=== PATIENT | male | born 1955 | race Caucasian/White ===

== ENCOUNTER 2022-09-21 09:10 | Outpatient (CLI) | payer MEDICARE, BC, SELFPAY ==
[2022-09-21 14:18] LABS: SARS PCR* Negative SARS-CoV-2 (Negative)
== END 2022-09-21 09:11 | disposition home or self-care (01) ==
PROVIDERS: Visit Provider Orthopaedic Surgery
DX: Z20.822 Contact with and (suspected) exposure to COVID-19 (principal); Z01.818 Encounter for other preprocedural examination
CPT/HCPCS: 87635

== ENCOUNTER 2022-09-22 07:59 | Day surgery (SDC) | payer MEDICARE, BC, SELFPAY ==
[2022-09-22] VITALS (23 sets, daily range): BP systolic 84–159; BP diastolic 40–106; PULSE 67–95; RESP 16–18; TEMP 36.1–36.6; O2SAT 94–100; BMI 37.8
[2022-09-22] MEDS: OXYCODONE (CR) 10 MG TAB.ER.12H PO (08:00)
[2022-09-22] MEDS: CELECOXIB 200 MG CAPSULE PO (08:00)
[2022-09-22] MEDS: LACTATED RINGERS 1000 ML 1,000 ML 100 ML IV ×2 (08:00→11:17)
[2022-09-22] MEDS: SODIUM CHLORIDE 0.9 % (FLUSH) 10 ML SYRINGE IVF (08:31)
[2022-09-22] MEDS: ACETAMINOPHEN 500 MG TABLET 1000 MG PO ×3 (08:31→20:11)
[2022-09-22] MEDS: MIDAZOLAM HCL 1 MG/ML inj IVP (09:25)
[2022-09-22] MEDS: fentaNYL 100 MCG/2 ML inj IVP (09:25)
--- NOTE | 2022-09-22 09:30 | P.NB_ITS ---
Nerve Block Nerve Block Time Seen by Provider: 09:29 Date Seen: 09/22/22 Type of block requested by surgeon for post-operative analgesia: adductor canal Side: right Time out performed: Yes Verification of patient name: Yes Verification of date of : Yes Site marking: site marked Name of person performing procedure: Joshua Continuous monitoring Was continuous monitoring of O2 sat, B/P, director of cardiac rehabilitation, recorded every 15 minutes?: Yes Procedure Checklist: sterile prep, needles and gloves Ultrasound guided. Images saved: Yes Medications given in 5ml increments after negative aspiration: Ropivicaine %: 0.5 mL: 20 Needle gauge: 20 Decadron (mg): 10 Precedex (mcg): 25 Patient tolerated procedure well: Yes Additional comments: Needle noted adjacent to nerve Block Charges Block Charge (with Pro Fee): Femoral Nerve Use of Ultrasound Machine for Block: Yes- US Guidance/pain block
--- NOTE | 2022-09-22 09:30 | W.ANESCHARGE ---
Anesthesia Charges Start Date/Time Anesthesia Start Date: 09/22/22 Anesthesia Start Time: 09:48 Stop Date/Time Anesthesia Stop Date: 09/22/22 Anesthesia Stop Time: 12:03
--- NOTE | 2022-09-22 09:30 | SUR.PREOP ---
TIME?OUT:?09:23am PT/RN/MDA?VERIFICATION?OF?SURGICAL?SITE RKnee,?PROCEDURE Nerve Block,?AND?CONSENT OBTAINED?PRIOR?TO?INVASIVE?PROCEDURE.
--- NOTE | 2022-09-22 09:31 | W.PM.NB ---
Nerve Block Nerve Block Time Seen by Provider: 09:29 Date Seen: 09/22/22 Type of block requested by surgeon for post-operative analgesia: geniculars Side: right Time out performed: Yes Verification of patient name: Yes Verification of date of : Yes Site marking: site marked Name of person performing procedure: Joshua Continuous monitoring Was continuous monitoring of O2 sat, B/P, scrap piler, recorded every 15 minutes?: Yes Procedure Checklist: sterile prep, needles and gloves Medications given in 5ml increments after negative aspiration: Ropivicaine %: 0.5 mL: 9 Needle gauge: 25 Patient tolerated procedure well: Yes Block Charges Block Charge (with Pro Fee): Genicular Nerve Block Use of Ultrasound Machine for Block: No
[2022-09-22] MEDS: CEFAZOLIN 2 GM INJ IVP (09:58)
[2022-09-22] MEDS: TRANEXAMIC ACID 100 MG/ML INJ 1000 MG IV (10:00)
--- NOTE | 2022-09-22 11:12 | CRLHL7_ITS ---
For Patients: As a result of the Cures Act, medical imaging exams and procedure reports are released immediately into your electronic medical record. You may view this report before your referring provider. If you have questions, please contact your health care provider. Indication: POST OP RIGHT TKA Technique: Two views right knee Findings/Impression: Hardware from a right total knee arthroplasty is in satisfactory position. Bone alignment is normal. No sign of acute fracture. Postop changes are within normal limits. Chronic changes to the proximal fibula, unchanged from 09/17/2021. Dictated by Varinder Irwin MD @ 09/22/2022 12:44:41 PM (Electronically Signed)
--- NOTE | 2022-09-22 11:14 | P.ORPRC_ITS ---
Procedure Note Date of procedure: 09/22/22 Procedure: PREOPERATIVE DIAGNOSIS: Right knee osteoarthritis POSTOPERATIVE DIAGNOSIS: Right knee osteoarthritis NAME OF OPERATION: Right total knee arthroplasty SURGEON: Emerson Crenshaw MD HOME APPLIANCE WASHING MACHINE MECHANIC: GENEVA Centeno ANESTHESIA: Spinal ESTIMATED BLOOD LOSS: 0 mL COMPLICATIONS: None SPECIMENS: None DRAINS: None PREOPERATIVE ANTIBIOTICS: Ancef 3 grams IMPLANTS: 1. J&J Attune # 7 posterior stabilized femur 2. # 7 fixed-bearing tibia 3. # 7 posterior stabilized, 5 mm fixed-bearing polyethylene 4. 41 patella INDICATIONS: The patient is a 67-year-old with a longstanding history of severe, unrelenting right knee pain secondary to end-stage (grade IV) right knee osteoarthritis. Despite appropriate nonoperative management, including activity modification, anti-inflammatories, [id number] pain medication, bracing, physical therapy, and injections they continue to have pain and disability. Operative intervention was offered. The risks, benefits and expected outcomes were discussed in detail. These included but were not limited to: Infection, bleeding, injury to blood vessel or nerve, venous thromboembolism. All questions were answered to their satisfaction. Use of an food and beverage assistant was necessary throughout the case for patient positioning and safety, soft tissue retraction, and closure. PROCEDURE: Spinal anesthesia was administered. The patient was placed supine on the operating table. The food and beverage assistant made sure the patient was positioned appropriately. The lower extremity was prepped and draped in the usual sterile fashion. The limb was exsanguinated with the Stefan bandage. The pneumatic tourniquet was inflated to 300 mmHg. A standard anterior incision was made with the knee in flexion. Subcutaneous dissection was sharply taken through fascial layer #1. Full-thickness medial and lateral flaps were elevated. The food and beverage assistant retracted the soft tissues and protected them throughout the case. A standard medial parapatellar approach was made. The patella was everted. The infrapatellar fat pad was preserved. The menisci and cruciate ligaments were sharply d?brided. Marginal osteophytes were d?brided with the rongeur. The drill was used to penetrate the femoral canal. The canal was aspirated and irrigated with pulse lavage. The intramedullary femoral guide was placed for a 5-degree valgus cut, removing 10 mm off the distal femur. The saw was used to make the cut. Whitesides line and the trans epicondylar axis were marked. The femoral sizing guide was pinned onto the distal femur. Three degrees of external rotation nicely parallels the transepicondylar axis. Pins were placed for posterior referencing. The four-in-one cutting guide was pinned onto the distal femur. The anterior, posterior, and chamfer cuts were made. The food and beverage assistant protected the collateral ligaments. The box cutting guide was pinned. The box cuts were made. The boxed trial was placed and was an excellent fit. Drill holes for the lugs were made. Attention was then turned to the proximal tibia. The extramedullary tibial guide was placed for a neutral varus/valgus cut with 5 degrees of posterior slope, removing 2 mm based off the medial tibial surface. The food and beverage assistant protected the collateral ligaments and the neurovascular bundle. The saw was used to make the cut. Trial components were placed. The knee was nicely balanced in both flexion and extension. The trial components were removed. The tray was placed in appropriate rotation, parallel to our tibial cutting pins. It was pinned by the food and beverage assistant and the drill and the punch were used. The tray was removed. The punch was used again. We placed a bone plug in the femoral canal. Attention was then turned to the patella. [place] patellar thickness was 25 mm. The lobster claw resection guide was used with the 9.5 mm hardik. The saw was u sed to make the cut. Drill holes were made by the food and beverage assistant. The trial was placed and was an excellent fit. Cancellous surfaces were irrigated with pulse lavage and thoroughly dried by the food and beverage assistant. We cemented the tibial component, then the femoral component. We impacted the 5 mm polyethylene onto the tibial tray. The knee was brought into full extension. We then cemented the patellar component. Excessive cement was removed. The cement was allowed to harden. The knee was taken through a range of motion and was found to be nicely balanced in both flexion and extension. The patella tracks centrally. The food and beverage assistant did a three minute dilute Betadine solution soak. The food and beverage assistant irrigated the wound with 3 liters of normal saline via pulse lavage. The food and beverage assistant reapproximated the extensor mechanism with #1 Vicryl in an interrupted [id number] fashion. The food and beverage assistant then ran the extensor mechanism with a #1 PDO Stratafix. The food and beverage assistant closed the subcutaneous tissues with a 3-0 Stratafix and the skin with a running 3-0 Stratafix in a subcuticular fashion. Glue was used to seal the skin. The food and beverage assistant placed a dry dressing, JENAE stocking, and Polar Care. Sponge and needle counts were correct x2. The patient tolerated the procedure well. There were no apparent complications. They were carefully transferred to the hospital bed and taken to the postanesthesia care unit in satisfactory condition. PLAN: The patient will be mobilized with physical therapy. Aspirin will be used for DVT prophylaxis. They will be discharged to home once medically appropriate.
--- NOTE | 2022-09-22 12:06 | W.ANESCHARGE ---
Anesthesia Charges Start Date/Time Anesthesia Start Date: 09/22/22 Anesthesia Start Time: 09:48 Stop Date/Time Anesthesia Stop Date: 09/22/22 Anesthesia Stop Time: 01:20
--- NOTE | 2022-09-22 12:20 | SUR.PHASEI ---
xray here for ap/lat right knee
--- NOTE | 2022-09-22 12:29 | SUR.PHASEI ---
Joshua Zaidi HOSPITAL PHARMACY DIRECTOR into see pt ordered to give 500cc bolus of iv fluid bps 85/53 and continue to monitor
--- NOTE | 2022-09-22 12:38 | SUR.PHASEI ---
PT alert and orientated denies any pain or problems bp stating to come up last
--- NOTE | 2022-09-22 12:51 | W.ANESCHARGE ---
Anesthesia Charges Start Date/Time Anesthesia Start Date: 09/22/22 Anesthesia Start Time: 09:48 Stop Date/Time Anesthesia Stop Date: 09/22/22 Anesthesia Stop Time: 12:03
--- NOTE | 2022-09-22 13:08 | SUR.PREOP ---
I have reviewed and concur with all assessments, medication administration, and documentation completed by Lexi Main, student nurse.?
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
--- NOTE | 2022-09-22 15:24 | PC.NURSE ---
Pt arrived via hospital bed to room 259 @ 1253 pm from PACU s/p RTKA with Dr. Crenshaw. Please see initial assessment from PACU and frequent post op VS per protocol. Knee locked, bed alarm engaged. Bilateral knee robert hose, bilateral plexipulses, cryocuff to right knee. Mepilex CDI. Pt has rated his pain 0 out of 10, weak movement lower extremities. Scheduled tylenol provided. Maintenance IVF LR @ 75cc/hr. Pt has not yet voided since arrival on floor. Plan d/c tomorrow to his own home with Naty. Report to oncoming shift GRIFFIN Lui.
[2022-09-22] MEDS: OXYCODONE 5 MG TABLET PO ×2 (15:52→20:12)
[2022-09-22] MEDS: CEFAZOLIN 3 GM in 0.9 % SODIUM CHLORIDE 100 ml 100 ML IVPB (17:23)
[2022-09-22] MEDS: SENNOSIDES 1 TAB TABLET 2 TAB PO (20:11)
[2022-09-22] MEDS: ASPIRIN 81 MG TABLET EC PO (20:12)
[2022-09-22] MEDS: SIMVASTATIN 40 MG TABLET PO (20:12)
--- NOTE | 2022-09-22 23:25 | PC.NURSE ---
Nursing Care Hours: [id number] Pt this shift calm and cooperative with cares. Up in chair for dinner with PT, ambulate x1 assist with walker, then SB assist towards later evening. Voiding, eating, and drinking WNL. Bandage CDI, pedal pulses equal and slightly faint. Cryo-cuff on. Pain max 6/10 and treated per eMAR, 3/10 at HS.
[2022-09-23] MEDS: CEFAZOLIN 3 GM in 0.9 % SODIUM CHLORIDE 100 ml 100 ML IVPB ×2 (00:31→08:07)
[2022-09-23] MEDS: ACETAMINOPHEN 500 MG TABLET 1000 MG PO ×2 (01:41→08:45)
[2022-09-23 02:24] VITALS: BP 136/82; PULSE 88; RESP 14; TEMP 36.7; O2SAT 94
--- NOTE | 2022-09-23 06:26 | PC.NURSE ---
Pt is alert and oriented x3. Afebrile. Pt reports 2/10 pain in hip, pain managed with scheduled?Tylenol. Pt right hip dressing is CDI, area is warm and pink, and pt has strong pedal pulses with <3 cap refill in toes, pt is able to move and has sensation in his hip and leg.?Pt denies SOB, Chest pain, and N/V. Pt is up with SBA with walker and gait belt?and is tolerating a regular diet. Pt slept intermittently throughout night.?
[2022-09-23 06:49] LABS: Basophils Percent Auto 0.1 % (0.0-3.0); Hematocrit 36.7 % (37.0-53.0); Hemoglobin* 12.2 gm/dL (13.5-17.5); Immature Granulocytes Pct Auto 0.1 %; Lymphocytes Percent Auto 7.9 % (20-44); Mean Corpuscular HGB Conc 33 gm/dL (32-36); Mean Corpuscular Hemoglobin 31 pg (26-34); Mean Corpuscular Volume 92 fL (80-100); Monocytes Percent Auto 6.2 % (0.0-11.0); Neutrophils Percent Auto 85.7 % (42.0-72.0); Platelet Count* 277 K/uL (140-440); RDW Coefficient of Variation % 13.1 % (11.5-15.5); White Blood Count* 12.77 K/uL (4.50-11.00)
[2022-09-23 07:14] LABS: Potassium* 4.9 mmol/L (3.6-5.1); Sodium* 138 mmol/L (135-149)
[2022-09-23 07:17] LABS: Blood Urea Nitrogen* 18 mg/dL (7-30); Creatinine* 0.8 mg/dL (0.5-1.5); Est. Creatinine Clearance* 76.35; Estimated Glomerular Filt Rate 97 ml/min
[2022-09-23 07:18] LABS: Slide Review Reflex No
[2022-09-23 07:26] LABS: INR 1.01 (0.91-1.10); Prothrombin Time 13.9 Seconds
[2022-09-23 07:40] VITALS: BP 140/87; PULSE 92; RESP 18; TEMP 36.7; O2SAT 99
[2022-09-23] MEDS: ASPIRIN 81 MG TABLET EC PO (08:44)
[2022-09-23] MEDS: OXYCODONE 5 MG TABLET PO (08:44)
[2022-09-23] MEDS: allopurinoL 300 MG TABLET PO (08:44)
[2022-09-23] MEDS: SENNOSIDES 1 TAB TABLET 2 TAB PO (08:44)
--- NOTE | 2022-09-23 10:22 | PM.ORPN ---
Subjective Subjective Time Seen by Provider: 07:30 Date Seen: 09/23/22 Principal diagnosis: Status post right knee replacement Interval history: Florian is doing well today. He got minimal sleep last night. He will be discharging to home today. He is mobilizing well. Ortho Exam Narrative Exam Narrative: Alert and oriented x3. Patient is in no acute distress. Converses without labored breathing. Hearing is grossly intact. Ambulates with a walker. Examination of right knee shows the dressing is intact. Mild effusion. Mild soft tissue edema about the right knee. CMS intact right lower extremity. Bilateral calves are soft and nontender. Quad strength is strong. Const Vital Signs, click to edit/add: Vital Signs - 24 hr 09/22/22 12:03 09/22/22 12:05 09/22/22 12:10 Temperature 97.8 F Pulse Rate 70 70 70 Pulse Rate [Left Pulse Oximeter] Respiratory Rate 16 16 16 Blood Pressure 93/46 L 96/52 L 96/67 Blood Pressure [Left Arm] Blood Pressure [Right Arm] Pulse Oximetry 98 98 100 Oxygen Delivery Method OxyMask OxyMask OxyMask Oxygen Flow Rate 6 6 6 09/22/22 12:15 09/22/22 12:20 09/22/22 12:25 Temperature Pulse Rate 72 73 68 Pulse Rate [Left Pulse Oximeter] Respiratory Rate 16 16 16 Blood Pressure 84/40 L 91/54 L 85/53 L Blood Pressure [Left Arm] Blood Pressure [Right Arm] Pulse Oximetry 96 96 96 Oxygen Delivery Method Room Air Room Air Room Air Oxygen Flow Rate 6 6 09/22/22 12:30 09/22/22 12:35 09/22/22 12:40 Temperature Pulse Rate 70 72 72 Pulse Rate [Left Pulse Oximeter] Respiratory Rate 16 16 16 Blood Pressure 86/47 L 95/48 L 97/48 L Blood Pressure [Left Arm] Blood Pressure [Right Arm] Pulse Oximetry 96 96 96 Oxygen Delivery Method Room Air Room Air Room Air Oxygen Flow Rate 6 6 6 09/22/22 12:45 09/22/22 12:53 09/22/22 13:00 Temperature 97.4 F L 97 F L 97 F L Pulse Rate 73 72 Pulse Rate [Left Pulse Oximeter] 67 Respiratory Rate 16 16 16 Blood Pressure 99/51 L Blood Pressure [Left Arm] 116/70 116/70 Blood Pressure [Right Arm] Pulse Oximetry 97 97 Oxygen Delivery Method Room Air Room Air Room Air Oxygen Flow Rate 6 09/22/22 13:15 09/22/22 13:30 09/22/22 13:45 Temperature Pulse Rate Pulse Rate [Left Pulse Oximeter] 70 72 70 Respiratory Rate 16 16 16 Blood Pressure Blood Pressure [Left Arm] Blood Pressure [Right Arm] 106/75 119/66 119/66 Pulse Oximetry 96 97 Oxygen Delivery Method Room Air Room Air Room Air Oxygen Flow Rate 09/22/22 13:58 09/22/22 14:00 09/22/22 14:00 Temperature 97.1 F L Pulse Rate Pulse Rate [Left Pulse Oximeter] 70 67 73 Respiratory Rate 16 18 18 Blood Pressure Blood Pressure [Left Arm] Blood Pressure [Right Arm] 109/95 H 121/77 136/85 Pulse Oximetry 97 95 97 Oxygen Delivery Method Room Air Room Air Room Air Oxygen Flow Rate 09/22/22 15:00 09/22/22 11:15 09/22/22 11:15 Temperature Pulse Rate Pulse Rate [Left Pulse Oximeter] 95 Respiratory Rate 18 Blood Pressure Blood Pressure [Left Arm] Blood Pressure [Right Arm] Pulse Oximetry 94 94 Oxygen Delivery Method Oxygen Flow Rate 09/22/22 11:15 09/23/22 02:24 09/23/22 07:40 Temperature 97.9 F 98.0 F Pulse Rate Pulse Rate [Left Pulse Oximeter] 95 88 Respiratory Rate 16 14 Blood Pressure Blood Pressure [Left Arm] Blood Pressure [Right Arm] 118/80 136/82 Pulse Oximetry 98 94 99 Oxygen Delivery Method Room Air Room Air Oxygen Flow Rate 09/23/22 07:40 09/23/22 07:40 Temperature 98.1 F Pulse Rate Pulse Rate [Left Pulse Oximeter] 92 92 Respiratory Rate 18 Blood Pressure Blood Pressure [Left Arm] Blood Pressure [Right Arm] 140/87 H Pulse Oximetry 99 Oxygen Delivery Method Room Air Oxygen Flow Rate Assessment and Plan Assessment and plan (1) Status post total right knee replacement: Problem details: 09/22/2022, Dr. Crenshaw Status: Acute Assessment and Plan: Plan for discharge is today to home if they meet discharge criteria. DVT prophylaxis includes aspirin 81 mg twice daily x1 month, Dilan stockings x1 month may remove for 1 hr per day, frequent ambulation Remove dressing in 1 week. Observe wound and phone Orthopedics with any questions or concerns Return to clinic in 1 week for a wound check Return to clinic in [address] Crenshaw Minimize narcotic use. Wean off and discontinue soon as possible. Activities as tolerated. No strenuous activity. Outpatient physical therapy as scheduled. Ice and elevate the operative extremity. No restriction on ice. (2) High cholesterol: Status: Chronic (3) Hypertension: Status: Chronic
--- NOTE | 2022-09-23 10:32 | PC.NURSE ---
Pt cooperative and pleasant during shift. Pt SBA with walker. Pt's dressing is dry and intact. Pt has rated pain from 2-3. See EMAR for intervention. Pt to discharge home with . Follow up appointments scheduled.
--- NOTE | 2022-09-23 11:22 | PC.SOCIAL ---
Per therapy pt is transferring and moving well. Pt is discharging home with 's assistance during recovery. Pt does not have any identified needs for social work.
== END 2022-09-23 10:25 | disposition home or self-care (01) ==
LOC: OR 07:59 → MEDSURG 08:03
PROVIDERS: PCP Family Medicine; Visit Provider Orthopaedic Surgery
PROC: (CPT 27447; principal; 2022-09-22 10:00)
DX: M17.11 Unilateral primary osteoarthritis, right knee (principal); E78.00 Pure hypercholesterolemia, unspecified; I10 Essential (primary) hypertension
CPT/HCPCS: 27447; 01400; 01402; 36415; 73560; 76942; 82565; 84132; 84295; 84520; 85025; 85610; 97110; 97116; 97161; 97165; 97535; A9270; C1776; J0690; J1100; J2250; J2370; J2704; J2795; J3010; J7120